=== PATIENT | female | born 1985 | race Caucasian/White ===

== ENCOUNTER 2023-07-29 05:49 | Emergency (ER) | payer MEDICAID, OTHER ==
[2023-07-29 06:09] VITALS: BP 203/112; O2SAT 95
--- NOTE | 2023-07-29 06:12 | ED Physician Documentation ---
PD HPI HEENT - Stated complaint Stated Complaint: THROAT PX - Chief complaint Chief Complaint: Heent - History obtained from History obtained from: Patient - Additional information Additional information: HPI from patient. Patient c/o sore throat with odynophagia since yesterday, constant and steadily worsening since onset. No ameliorating factors. She developed bilateral ear pain since this afternoon, as well. Chills/sweats but has not measured temperature at home. She says the symptoms are similar to previous episodes of strep throat she has had. Review of Systems Constitutional: reports: Chills, Sweats Ears: reports: Ear pain Respiratory: denies: Dyspnea, Cough GI: denies: Nausea, Vomiting PD PAST MEDICAL HISTORY - Past Medical History Past Medical History: No - Present Medications Home Medications: Ambulatory Orders Medication Instructions Recorded Confirmed Albuterol Sulf [Ventolin Hfa 1 - 2 puffs INH Q4HR PRN 07/29/23 07/29/23 Inhaler] Amox/Clav 875/125 [Augmentin 1 tablet PO Q12H 7 Days #14 tablet 07/29/23 875/125 Tab] guaiFENesin/CODEINE [Robitussin AC] 5 - 10 ml PO Q6H PRN #100 ml 07/29/23 - Allergies Allergies/Adverse Reactions: Allergies Allergy/AdvReac Type Severity Reaction Status Date / Time No Known Drug Allergies Allergy Verified 07/29/23 05:55 PD ED PE NORMAL - Vitals Vital signs reviewed: Yes - General General: Alert and oriented X 3, Well developed/nourished, Other (appears uncomfortable) - HEENT HEENT: Moist mucous membranes - Neck Neck: Supple, no meningeal sign - Respiratory Respiratory: No respiratory distress, Clear bilaterally PD ED PE EXPANDED - HEENT HEENT: Pharyngeal erythema, Swollen tonsils, Tonsillar exudate Results - Vitals Vitals: Vital Signs - 24 hr 07/29/23 05:55 Temperature 37.4 C Heart Rate 118 H Respiratory 18 Rate Blood Pressure 203/112 H O2 Saturation 95 - Labs Labs: Laboratory Tests 07/29/23 06:00 Group A Strep Rapid Negative PD Medical Decision Making - ED course Complexity details: considered differential, d/w patient ED course: Rapid strep negative but I recommend antibiotic treatment despite negative result based on severity of symptoms and findings on oropharyngeal exam; patient is agreeable to this plan. She is given 10mg PO decadron for anti-inflammatory effect, as well as PO augmentin. We discussed options for pain control and she says she has had good relief with "codeine cough syrup" (per patient) with previous episodes of strep throat. She is thus given 10ml robitussin AC in ED, as well. Augmentin and robitussin AC e-prescribed to patient's pharmacy of choice. Return precautions reviewed. Departure - Departure Disposition: 01 Home, Self Care Clinical Impression: Pharyngitis Qualifiers: Pharyngitis/tonsillitis etiology: unspecified etiology Qualified Code(s): J02.9 - Acute pharyngitis, unspecified Condition: Good Instructions: ED Strep Pharyngitis Poss Prescriptions: Amox/Clav 875/125 [Augmentin 875/125 Tab] 1 tablet PO Q12H 7 Days #14 tablet guaiFENesin/CODEINE [Robitussin AC] 5 - 10 ml PO Q6H PRN #100 ml PRN Reason: Pain >8 Comments: The rapid strep test resulted negative. As we discussed, this only tests for one type of strep (although it is the most common type of strep to cause strep throat). The lab will do further testing on the throat swab; specifically, the throat swab will now be cultured. The throat culture is a far more accurate test, but it takes 1 to 2 days to result. The culture also can detect other forms of strep that can cause strep throat that are not tested on the rapid test. Rather than waiting for the result of the culture, based on the severity of your symptoms and the extensive swelling on exam of your throat, I am starting you an antibiotic . The appearance on exam is strongly suggestive of strep throat. Anticipating the likelihood of a positive culture, you were given the first dose of an antibiotic (Augmentin) in the emergency department, and I have electronically submitted a prescription for this antibiotic to [facility] pharmacy in [place]. You were also given a one-time dose of steroid (dexamethasone) in the emergency department; this has a very slow onset of effect (may take a few hours to effect), but often will help reduce the swelling and, in turn, reduce the pain of severe pharyngitis. I have also submitted a prescription for Robitussin with codeine to the [facility] pharmacy. I am prescribing a short course of narcotic pain medication for you. These are potentially dangerous and addictive medications that should be used carefully. These medications may constipate you. Take an [id number] stool softener (docusate) twice daily with plenty of water while taking these medications. If you go 24 hours without a bowel movement, take [id number] miralax, per package instructions. Do not drink or drive while taking these medications. If you received narcotic or sedating medications while in the emergency department, do not drive for 24 hours. Store this medication in a safe, secure place and out of reach of children. It is a violation of federal law to give or sell this medication to another person or to use in a manner other than prescribed. The ED will not refill narcotic prescriptions, including prescriptions lost or stolen. To dispose of unwanted medications: 1. [facility] at [address] in [place] has a medication drop box. They accept prescription medications (in pill form) Thursday through Thursday 9:00 a.m. to 5:00 p.m. 2. [facility] accepts prescription medications (in pill form only) for disposal year round. Call for more information. 3. Contact the [facility] for the next [facility] sponsored prescription drug collection event. , [phone], or [phone]; Forms: PCP List Discharge Date/Time: 07/29/23 07:52
[2023-07-29 06:21] LABS: RAPID STREP SCREEN Negative (Negative)
[2023-07-29] MEDS ORDERED: AMOX/CLAV 875 MG/125 MG TABLET PO STA (06:57)
[2023-07-29] MEDS ORDERED: guaiFENesin/CODEINE 5 ML UDC PO STA (06:57)
[2023-07-29] MEDS ORDERED: DEXAMETHASONE 10 MG/ML VIAL PO STA (06:57)
[2023-07-29] MEDS ORDERED: CHERRY SYRUP 10 ML UDC PO ONE (06:57)
== END 2023-07-29 07:52 | disposition home or self-care (01) ==
LOC: ED 05:49
DX: J02.9 Acute pharyngitis, unspecified (principal)
CPT/HCPCS: 87070; 87430; 99283; A9270